=== PATIENT | female | born 1990 | race Caucasian/White ===

== ENCOUNTER → 2024-05-25 13:24 | Outpatient (REF) | payer BC, SELFPAY | LOC: MRI 13:24 | PROVIDERS: ATTENDING PHYSICIAN Physical Medicine & Rehabilitation Sports Medicine | DX: M25.511 Pain in right shoulder (principal); S43.431A Superior glenoid labrum lesion of right shoulder, initial encounter; M35.7 Hypermobility syndrome | CPT/HCPCS: 23350; 73040; 73222 ==